=== PATIENT | male | born 1950 | race Caucasian/White ===

== ENCOUNTER 2019-02-12 10:38 | Emergency (ER) | payer MEDICARE, OTHER ==
[2019-02-12 10:47] VITALS: BMI 30.9
[2019-02-12] MEDS ORDERED: OMEPRAZOLE20 M1 PO (10:54)
[2019-02-12] MEDS ORDERED: ZESTRIL10 MG PO (10:54)
[2019-02-12] MEDS ORDERED: REQUIP1 MG PO (10:55)
[2019-02-12] MEDS ORDERED: ZOCOR20 MG PO (10:55)
[2019-02-12] MEDS ORDERED: [UNRECOGNIZED DRUG - OTHER] (10:56)
[2019-02-12] MEDS ORDERED: FOLIC ACID1 MG PO (10:56)
[2019-02-12 11:48] LABS: APTT 25.5 SECONDS (22.8-39.4); INR 1.01 (0.85-1.17); PROTIME 12.8 SECONDS (11.6-15.0)
[2019-02-12 11:55] LABS: ALBUMIN 4.3 g/dL (3.4-5.0); ALKALINE PHOSPHATASE 117 U/L (46-116); ALT (SGPT) 30 U/L (10-68); BILIRUBIN - TOTAL 0.97 mg/dL (0.2-1.3); CALC OSMOLALITY 279 mosm/kg (275-300); CALCIUM 9.4 mg/dL (8.5-10.1); CARBON DIOXIDE 28.8 mmol/L (21.0-32.0); CHLORIDE - SERUM 103 mmol/L (98-107); CREATININE - SERUM 1.2 mg/dL (0.6-1.3); GLUCOSE 95 mg/dL (74-106); POTASSIUM - SERUM 3.8 mmol/L (3.5-5.1); PROTEIN - SERUM 8.4 g/dL (6.4-8.2); SODIUM 139 mmol/L (136-145); UREA NITROGEN 18 mg/dL (7-18); eGFR NON AFRICAN AMERICAN 64 mL/min (90-120)
[2019-02-12 12:06] LABS: CKMB 0.1 U/L (0.0-3.6); CREATINE KINASE 52 UL (21-232); MAGNESIUM - SERUM 2.3 mg/dL (1.8-2.4); TROPONIN-I < 0.017 ng/mL (0.000-0.060)
[2019-02-12 12:07] LABS: BASOPHILS 0.3 % (0-2); EOSINOPHILS 1.9 % (0-7); HEMOGLOBIN 16.1 g/dL (13.5-17.5); IMMATURE GRANULOCYTES 0.3 % (0-5); LYMPHOCYTES 38.8 % (15-50); MCH 30.9 pg (26.0-34.0); MCHC 35.8 g/dL (31.0-37.0); MCV 86.4 fL (80.0-100.0); MEAN PLATELET VOLUME 9.4 fL (7.4-10.4); MONOCYTES 11.1 % (2-11); NEUTROPHILS 47.6 % (40-80); PLATELET COUNT 183 10x3/uL (130-400); RBC 5.21 10x6/uL (4.20-6.10); RDW 12.4 % (11.5-14.5); WBC 5.8 10x3/uL (4.8-10.8)
[2019-02-12] MEDS ORDERED: ONDANSETRON8 MG/TAB PO (12:25)
[2019-02-12] MEDS ORDERED: MECLIZINE HCL25 MG PO (12:25)
[2019-02-12 13:44] VITALS: BP 119/86
== END 2019-02-12 13:47 | disposition home or self-care (01) ==
LOC: D.ER 10:38
PROVIDERS: Emergency Medicine
DX: H81.10 Benign paroxysmal vertigo, unspecified ear (principal)